=== PATIENT | female | born 1995 | race Caucasian/White ===

== ENCOUNTER 2017-01-10 18:24 | Emergency (ER) | payer OTHER ==
[~2017-01-10] VITALS: Ht 170.2 cm; Wt 76.5 kg
[2017-01-10 18:30] VITALS: Ht 170.2 cm; Wt 76.5 kg
[2017-01-10] MEDS ORDERED: FLUCONAZOLE 150 MG TAB PO ONE (20:00)
[2017-01-10 20:06] LABS: ADD UMIC YES; UR ASCORBIC ACID NEGATIVE (NEGATIVE); UR BILIRUBIN (Dip) NEGATIVE (NEGATIVE); UR BLOOD (Dip) 1+ mg/dL (NEGATIVE); UR CLARITY CLEAR (CLEAR); UR COLOR STRAW (YELLOW); UR GLUCOSE (Dip) 3+ mg/dL (NEGATIVE); UR KETONES (Dip) TRACE mg/dL (NEGATIVE); UR LEUKOCYTE ESTERASE (Dip) TRACE Leu/ul (NEGATIVE); UR NITRITE (Dip) NEGATIVE (NEGATIVE); UR RBC 2 /HPF (0-5); UR SPECIFIC GRAVITY (Dip) 1.028 (1.003-1.030); UR TOTAL PROTEIN (Dip) NEGATIVE (NEGATIVE); UR UROBILINOGEN (Dip) NEGATIVE (NEGATIVE)
[2017-01-10] MEDS ORDERED: CLOT30CR24 TOP (20:43)
[2017-01-10] MEDS ORDERED: SULF1TAB31 PO (20:43)
[2017-01-10] MEDS ORDERED: CEPH-443 PO (20:43)
--- NOTE | 2017-01-10 20:50 | ERD ---
ER Documentation Chief Complaint Chief Complaint BLEEDING LUMP ON GENITAL WITH PUS X 2 DAYS HPI 21-year-old female patient with medical history of diabetes type 2 presents to the ED that she has a in her vaginal area that was bleeding. Reports that she was shaving. States that she also started to notice some slight pus. States that she also has some cheesy white discharge in the vaginal area. Denies any chest pain, shortness of breath, abdominal pain, nausea, vomiting, diarrhea, vaginal bleeding. Reports that she is currently on her menstruation. ROS All systems reviewed and are negative except as per history of present illness. Medications Home Meds Active Scripts Clotrimazole* (Clotrimazole* AF) 1% - 30 Gm Cream.gm., 1 APPLIC TOP BID for 28 Days, #1 TUB Prov:LEELA WALKER PA-C 01/10/17 Cephalexin* (Keflex*) 500 Mg Capsule, 500 MG PO QID for 7 Days, CAP Prov:LEELA WALKER PA-C 01/10/17 Sulfamethoxazole/Trimethoprim* (Bactrim Ds* Tablet) 1 Each Tablet, 1 TAB PO BID , #7 TAB Prov:LEEAL WALKER PA-C 01/10/17 Allergies Allergies: Coded Allergies: No Known Allergy (Unverified , 08/06/15) PMhx/Soc History of Surgery: No Anesthesia Reaction: No Hx Neurological Disorder: No Hx Respiratory Disorders: No Hx Cardiac Disorders: No Hx Psychiatric Problems: No Hx Miscellaneous Medical Probl: No Hx Alcohol Use: No Hx Substance Use: No Hx Tobacco Use: No Smoking Status: Never smoker Physical Exam Vitals Vital Signs Date Time Temp Pulse Resp B/P Pulse Ox O2 Delivery O2 Flow Rate FiO2 01/10/17 18:30 98.3 92 20 145/89 96 Physical Exam Const: Zup-waf-dpzryfxaz, well-nourished. In no acute distress. Head: Atraumatic, normocephalic Eyes: Normal Conjunctiva without injection. No purulent discharge. ENT: Normal external ear, nose. Moist oropharynx without tonsillar exudates. Non -erythematous pharynx. Uvula midline. No drooling. No trismus. Neck: No cervical midline tenderness. Full range of motion. No meningismus. No cervical lymphadenopathy. No JVD. Resp: Clear to auscultation bilaterally. No wheezing, rhonchi, rales, or crackles. No accessory muscle use. No retractions. Cardio: Regular rate and rhythm. No murmurs, rubs or gallops. Abd: Soft, nontender, non distended. Normal bowel sounds. No palpable masses. No rebound tenderness. No guarding. Negative McBurney's point. Negative psoas sign. Negative obturator sign. : See exam in MDM. Skin: No petechiae or rashes Back: No midline tenderness. No CVA tenderness. Ext: No cyanosis, or edema. Neur: Awake and alert. Normal gait. Normal coordination. Psych: Normal Mood and Affect Results 24 hrs Laboratory Tests Test 01/10/17 19:05 Urine Color STRAW Urine Clarity CLEAR Urine pH 6.0 Urine Specific [place] 1.028 Urine Ketones TRACEmg/dL Urine Nitrite NEGATIVEmg/dL Urine Bilirubin NEGATIVEmg/dL Urine Urobilinogen NEGATIVEmg/dL Urine Leukocyte Esterase TRACELeu/ul Urine Microscopic RBC 2/HPF Urine Microscopic WBC 2/HPF Urine Hemoglobin 1+mg/dL Urine Glucose 3+mg/dL Urine Total Protein NEGATIVEmg/dl Current Medications Medications (Trade) Dose Ordered Sig/Rachael Route PRN Reason Start Time Stop Time Status Last Admin Dose Admin Fluconazole (Diflucan) 150 mg ONCE ONCE PO 01/10/17 20:00 01/10/17 20:01 DC 01/10/17 19:58 Procedures/[facility] 21-year-old female patient with no significant past medical history presents to the ED complaining of a yeast infection as well as bleeding base of a hair follicle that started earlier today. Patient is afebrile and nontoxic- appearing. Patient has normal vital signs. Patient likely has folliculitis as well as a yeast infection. Patient will be treated here in the ED with Diflucan for her yeast infection. Patient also has some slight tinea cruris. Urinalysis shows trace ketones, 3+ glucose, trace leukocyte esterase hematuria. Patient will be appropriate for outpatient management with Bactrim and Keflex. Patient does not complain of dysuria. There is low suspicion for urinary tract infection, pyelonephritis. Low suspicion for anaphylaxis, scabies , SJS/TEN, TSS, Lyme's Disease, syphilis, RMSF, shingles, disseminated gonorrhea chlamydia, DIC, TTP, ITP, erythema multiforme, sepsis, cellulitis, necrotizing fascitis, gangrene, meningococcemia, allergic contact dermatitis, urticaria, eczema, tinea infection, or other emergent conditions. Low suspicion for ectopic , ovarian torsion, gastritis, GERD, peptic ulcer disease, cholecystitis, choledocholithiasis, cholangitis, pancreatitis, appendicitis, bowel obstruction, ileus, volvulus, nephrolithiasis, pyelonephritis, hepatitis, perforated viscus, diverticulitis, strangulated/ incarcerated hernia, DKA, acute abdomen, mesenteric ischemia or other emergent conditions. Discharge medications: Keflex, Bactrim, Clotrimazole Follow up with primary care physician in 1-2 days for management and maintenance of diabetes. Instructed patient to return to the ED sooner for any worsening symptoms. Patient's questions were answered. Patient understood and agreed with discharge plan. Patient discharged stable. Departure Diagnosis: Primary Impression: Yeast infection Additional Impressions: Tinea cruris Folliculitis Condition: Stable Patient Instructions: Vaginal Infection: Yeast (Candidiasis), Folliculitis Referrals: [facility] YOU HAVE RECEIVED A MEDICAL SCREENING EXAM AND THE RESULTS INDICATE THAT YOU DO NOT HAVE A CONDITION THAT REQUIRES URGENT TREATMENT IN THE EMERGENCY DEPARTMENT. FURTHER EVALUATION AND TREATMENT OF YOUR CONDITION CAN WAIT UNTIL YOU ARE SEEN IN YOUR DOCTORS OFFICE WITHIN THE NEXT 1-2 DAYS. IT IS YOUR RESPONSIBILITY TO MAKE AN APPOINTMENT FOR FOLOW-UP CARE. IF YOU HAVE A PRIMARY DOCTOR --you should call your primary doctor and schedule an appointment IF YOU DO NOT HAVE A PRIMARY DOCTOR YOU CAN CALL OUR PHYSICIAN REFERRAL HOTLINE AT IF YOU CAN NOT AFFORD TO SEE A PHYSICIAN YOU CAN CHOSE FROM THE FOLLOWING [facility] [address] [facility] [address] [facility] [address] [facility]. [facility] [address] [facility] [address] [facility]. [facility]. [address] [facility] YOU HAVE RECEIVED A MEDICAL SCREENING EXAM AND THE RESULTS INDICATE THAT YOU DO NOT HAVE A CONDITION THAT REQUIRES URGENT TREATMENT IN THE EMERGENCY DEPARTMENT. FURTHER EVALUATION AND TREATMENT OF YOUR CONDITION CAN WAIT UNTIL YOU ARE SEEN IN YOUR DOCTORS OFFICE WITHIN THE NEXT 1-2 DAYS. IT IS YOUR RESPONSIBILITY TO MAKE AN APPOINTMENT FOR FOLOW-UP CARE. IF YOU HAVE A PRIMARY DOCTOR --you should call your primary doctor and schedule and appointment IF YOU DO NOT HAVE A PRIMARY DOCTOR YOU CAN CALL OUR PHYSICIAN REFERRAL HOTLINE AT . IF YOU CAN NOT AFFORD TO SEE A PHYSICIAN YOU CAN CHOSE FROM THE FOLLOWING [facility] INSTITUTIONS: [facility] [address] [place] [address] [facility] [address] [place], [place] [id number] [place] [address] [address] [place] [address] [facility] Additional Instructions: Call your primary care doctor TOMORROW for an appointment during the next 2-3 days.See the doctor sooner or return here if your condition worsens before your appointment time. LEELA WALKER PA-C Jan 10, 2017 20:50
== END 2017-01-10 21:15 | disposition home or self-care (01) ==
LOC: FTE 18:24
DX: B37.9 Candidiasis, unspecified (principal); B35.6 Tinea cruris; L73.9 Follicular disorder, unspecified
CPT/HCPCS: 81001; Z7502; Z7610; 99284

== ENCOUNTER 2017-04-26 15:28 | Emergency (ER) | END 2017-04-26 20:25 | disposition home or self-care (01) ==